=== PATIENT | female | born 1985 | race Caucasian/White ===

== ENCOUNTER 2021-06-07 00:06 | Inpatient (IN) ==
[2021-06-07] MEDS ORDERED: MORPHINE 2 MG/1 ML SYRINGE IV STA (00:38)
[2021-06-07] MEDS ORDERED: SODIUM CHLORIDE 0.9% 1,000 ML IV STA (00:38)
[2021-06-07] MEDS ORDERED: ONDANSETRON 4 MG/2 ML VIAL IV STA (00:38)
[2021-06-07 01:21] LABS: Alanine Aminotransferase 11 U/L (13-56); Albumin 2.7 G/DL (3.4-5.0); Alkaline Phosphatase 109 U/L (45-117); Aspartate Amino Transferase 10 U/L (0-37); Bilirubin,Total < 0.39 MG/DL (0.20-1.00); Blood Urea Nitrogen 12 MG/DL (7-18); Calcium 8.9 MG/DL (8.5-10.1); Carbon Dioxide 27 MMOL/L (21-32); Estimated Glom Filtration Rate 110 ML/MIN; Glucose 103 MG/DL (74-106); Osmolality,Calculated 267.2 MOS/KG (273-304); Potassium 4.1 MMOL/L (3.5-5.1); Sodium 134 MMOL/L (136-145); Total Protein 7.8 G/DL (6.4-8.2)
[2021-06-07 01:26] LABS: Basophils # 0.1 10*3/uL (0.0-0.2); Basophils % 0.4 % (0.0-0.8); Eosinophils # 0.4 10*3/uL (0.0-0.87); Eosinophils % 3.4 % (0.00-10.9); Hematocrit 26.2 VOL% (35.7-47.0); Hemoglobin 7.1 GM/DL (12.0-16.0); Immature Granulocytes % 0.6 %; Immature Granulocytes Absolute 0.08 #; Lymphocytes # 2.8 10*3/uL (1.4-4.0); Lymphocytes % 21.7 % (21.3-54.2); Mean Corpuscular HGB Conc 27.1 GM/DL (32-36); Monocytes % 4.5 % (1.7-12.7); Neutrophils % 69.4 % (38.7-73.9); Platelet Count 506 T/CUMM (130-400); Red Blood Count 4.16 MC/CUMM (3.8-5.5); Red Cell Distribution Width 20.7 % (9.3-17.3); White Blood Count 12.8 T/CUMM (4-12)
[2021-06-07 01:34] LABS: Bacteria,Urine Few /HPF (Few); Bilirubin,Urine Negative (Negative); Blood, Urine Negative (Negative); Glucose,Urine (UA) Negative (Negative); Ketones,Urine Negative (Negative); Mucus,Urine Occasional /LPF (Occasional); Nitrite,Urine Positive (Negative); Protein,Urine Negative; RBC,Urine 1 /HPF (0-4); Urine Appearance CLEAR (Clear); Urine Color Yellow (Yellow); Urine Specific Gravity 1.004 (1.001-1.035); Urine Urobilinogen < 2.0 EU/DL (0.2-1.0)
[2021-06-07] MEDS ORDERED: HYDROmorphone 2 MG/1 ML VIAL IV STA ×2 (02:14→04:58)
[2021-06-07] MEDS ORDERED: HYDROmorphone 2 MG/1 ML VIAL ONE (02:15)
[2021-06-07] MEDS ORDERED: cefTRIAXone 1,000 MG in SODIUM CHLORIDE 0.9% 100 ML IV STA (04:02)
[2021-06-07] MEDS ORDERED: PIPERACILLIN/TAZOBACTAM 3,375 MG in SODIUM CHLORIDE 0.9% 100 ML IV STA (04:38)
[2021-06-07] MEDS ORDERED: SODIUM CHLORIDE 0.9% 1,000 ML IV PRN ×2 (05:56→10:44)
[2021-06-07] MEDS ORDERED: GLUCAGON 1 MG VIAL IM PRN (05:57)
[2021-06-07] MEDS ORDERED: hydrALAZINE 20 MG/1 ML VIAL IV PRN (05:57)
[2021-06-07] MEDS ORDERED: DEXTROSE 50% 25 GM/50 ML VIAL IV PRN (05:57)
[2021-06-07] MEDS ORDERED: guaiFENesin/DM ER 600-30 MG TABLET PO PRN (05:57)
[2021-06-07] MEDS ORDERED: NICOTINE 21 MG/24 HR PATCH TRANSDERM PRN (05:57)
[2021-06-07] MEDS ORDERED: ONDANSETRON 4 MG/2 ML VIAL IV PRN (05:57)
[2021-06-07] MEDS ORDERED: ZALEPLON 5 MG CAPSULE PO PRN (05:57)
[2021-06-07] MEDS ORDERED: diphenhydrAMINE CAP 25 MG CAPSULE PO PRN (05:57)
[2021-06-07] MEDS ORDERED: SODIUM CHLORIDE 0.9% 1,000 ML IV SCH (06:00)
[2021-06-07 07:11] LABS: Folate 5.03 NG/ML (5.38-24.0); Vitamin B12 242 PG/ML (211-911)
[2021-06-07 09:17] LABS: Basophils # 0.1 10*3/uL (0.0-0.2); Basophils % 0.6 % (0.0-0.8); Eosinophils # 0.5 10*3/uL (0.0-0.87); Eosinophils % 5.1 % (0.00-10.9); Hematocrit 24.5 VOL% (35.7-47.0); Immature Granulocytes % 0.7 %; Immature Granulocytes Absolute 0.06 #; Lymphocytes # 3.2 10*3/uL (1.4-4.0); Lymphocytes % 36.7 % (21.3-54.2); Mean Corpuscular HGB Conc 25.7 GM/DL (32-36); Mean Corpuscular Volume 65.7 FL (87-102); Mean Platelet Volume 8.6 FL (9.6-12.0); Monocytes % 7.2 % (1.7-12.7); Neutrophils % 49.7 % (38.7-73.9); Platelet Count 394 T/CUMM (130-400); Red Blood Count 3.73 MC/CUMM (3.8-5.5); Red Cell Distribution Width 21.1 % (9.3-17.3); White Blood Count 8.8 T/CUMM (4-12)
[2021-06-07] MEDS ORDERED: INFLUENZA VIRUS VACCINE 0.5 ML SYRINGE IM ONE (09:31)
[2021-06-07 09:51] LABS: Hemoglobin 6.3 GM/DL (12.0-16.0)
[2021-06-07 09:57] LABS: Eosinophils 6 % (0-10); Hypochromasia 1+; Lymphocytes 36 % (20-55); Microcytosis 1+; Platelet Estimate Adequate; Segmented Neutrophils 51 % (50-85); Total Cells Counted 100
[2021-06-07] MEDS: PANTOPRAZOLE 40 MG TABLET PO SCH (10:26)
[2021-06-07] MEDS: FOLIC ACID 1 MG TABLET PO SCH ×2 (10:27→21:36)
[2021-06-07] MEDS: DOCUSATE SODIUM 100 MG CAPSULE PO SCH ×2 (10:27→21:35)
[2021-06-07] MEDS ORDERED: NON-FORMULARY MEDICATION (Omeprazole 20 mg capsule,delayed release(DR/EC)) PO SCH (10:30)
[2021-06-07 10:31] LABS: Hemoglobin A1 (Alkaline) 97.5 % (96.5-98.5); Hemoglobin A2 (Alkaline) 2.5 % (1.5-3.5)
[2021-06-07 11:36] LABS: Sedimentation Rate-Westergren 79 MM/HR (0-20)
[2021-06-07] MEDS: ACETAMINOPHEN 325 MG TABLET PO PRN ×2 (12:45→23:31)
[2021-06-07] MEDS: VANCOMYCIN INJ 1,000 MG in SODIUM CHLORIDE 0.9% 250 ML IV SCH (16:30)
[2021-06-07] MEDS: CEFEPIME 1,000 MG in SODIUM CHLORIDE 0.9% 100 ML IV SCH ×2 (16:31→17:07)
[2021-06-07] MEDS: OXYBUTYNIN XL 15 MG TABLET PO SCH ×2 (16:33→21:35)
[2021-06-07] MEDS: GABAPENTIN 400 MG CAPSULE PO SCH ×3 (16:34→21:41)
[2021-06-07] MEDS: BACLOFEN 20 MG TABLET PO SCH ×3 (16:52→21:35)
[2021-06-07] MEDS: metroNIDAZOLE INJ 500 MG/100 ML PREMIX IV SCH ×2 (16:53→17:06)
[2021-06-07] MEDS: MORPHINE 2 MG/1 ML SYRINGE IV PRN ×2 (16:53→23:26)
[2021-06-07] MEDS: AMITRIPTYLINE 50 MG TABLET PO SCH (21:36)
[2021-06-08] MEDS: CEFEPIME 1,000 MG in SODIUM CHLORIDE 0.9% 100 ML IV SCH ×4 (01:28→17:36)
[2021-06-08] MEDS: metroNIDAZOLE INJ 500 MG/100 ML PREMIX IV SCH ×3 (03:05→17:37)
[2021-06-08] MEDS: VANCOMYCIN INJ 1,000 MG in SODIUM CHLORIDE 0.9% 250 ML IV SCH ×2 (05:24→18:15)
[2021-06-08] MEDS: LEVOTHYROXINE 50 MCG TABLET PO SCH (06:32)
[2021-06-08 06:53] LABS: Albumin 2.2 G/DL (3.4-5.0); Bilirubin,Total 0.5 MG/DL (0.20-1.00); Calcium 8.2 MG/DL (8.5-10.1); Osmolality,Calculated 275.5 MOS/KG (273-304); Potassium 4.1 MMOL/L (3.5-5.1); Total Protein 6.5 G/DL (6.4-8.2)
[2021-06-08 06:55] LABS: Basophils % 0.4 % (0.0-0.8); Eosinophils # 0.3 10*3/uL (0.0-0.87); Hematocrit 31.3 VOL% (35.7-47.0); Immature Granulocytes % 0.4 %; Immature Granulocytes Absolute 0.03 #; Lymphocytes # 1.6 10*3/uL (1.4-4.0); Lymphocytes % 19.5 % (21.3-54.2); Mean Corpuscular HGB Conc 29.1 GM/DL (32-36); Mean Corpuscular Volume 69.9 FL (87-102); Monocytes % 6.4 % (1.7-12.7); Neutrophils % 69.3 % (38.7-73.9); Platelet Count 373 T/CUMM (130-400); Red Cell Distribution Width 26.5 % (9.3-17.3)
[2021-06-08 07:00] LABS: Hemoglobin 9.1 GM/DL (12.0-16.0); Red Blood Count 4.48 MC/CUMM (3.8-5.5)
[2021-06-08] MEDS: MORPHINE 2 MG/1 ML SYRINGE IV PRN ×3 (07:23→21:16)
[2021-06-08] MEDS: OXYBUTYNIN XL 15 MG TABLET PO SCH ×2 (10:08→21:14)
[2021-06-08] MEDS: BACLOFEN 20 MG TABLET PO SCH ×4 (10:08→21:14)
[2021-06-08] MEDS: GABAPENTIN 400 MG CAPSULE PO SCH ×4 (10:08→21:14)
[2021-06-08] MEDS: DOCUSATE SODIUM 100 MG CAPSULE PO SCH ×2 (10:08→21:14)
[2021-06-08] MEDS: FOLIC ACID 1 MG TABLET PO SCH ×2 (10:08→21:14)
[2021-06-08] MEDS: PANTOPRAZOLE 40 MG TABLET PO SCH (10:08)
[2021-06-08] MEDS: ZALEPLON 5 MG CAPSULE PO SCH (21:15)
[2021-06-09] MEDS: CEFEPIME 1,000 MG in SODIUM CHLORIDE 0.9% 100 ML IV SCH ×4 (00:42→18:42)
[2021-06-09] MEDS: VANCOMYCIN INJ 1,000 MG in SODIUM CHLORIDE 0.9% 250 ML IV SCH ×2 (05:13→17:03)
[2021-06-09] MEDS: LEVOTHYROXINE 50 MCG TABLET PO SCH (06:17)
[2021-06-09] MEDS: PANTOPRAZOLE 40 MG TABLET PO SCH (08:54)
[2021-06-09] MEDS: GABAPENTIN 400 MG CAPSULE PO SCH ×4 (08:54→22:28)
[2021-06-09] MEDS: OXYBUTYNIN XL 15 MG TABLET PO SCH ×2 (08:54→22:28)
[2021-06-09] MEDS: BACLOFEN 20 MG TABLET PO SCH ×4 (08:54→22:28)
[2021-06-09] MEDS: IRON (CARBONYL)/VIT C/B12/FA TABLET PO SCH (08:54)
[2021-06-09] MEDS: FOLIC ACID 1 MG TABLET PO SCH ×2 (08:55→22:27)
[2021-06-09] MEDS: DOCUSATE SODIUM 100 MG CAPSULE PO SCH ×2 (08:55→22:27)
[2021-06-09] MEDS: MORPHINE 2 MG/1 ML SYRINGE IV PRN ×2 (09:00→18:41)
[2021-06-09] MEDS: FUROSEMIDE 40 MG/4 ML VIAL IV SCH (17:02)
[2021-06-09] MEDS: POTASSIUM CHLORIDE 20 MEQ TABLET PO SCH (22:27)
[2021-06-09] MEDS: AMITRIPTYLINE 50 MG TABLET PO SCH (22:28)
[2021-06-10] MEDS: MORPHINE 2 MG/1 ML SYRINGE IV PRN ×4 (00:59→23:59)
[2021-06-10] MEDS: CEFEPIME 1,000 MG in SODIUM CHLORIDE 0.9% 100 ML IV SCH ×5 (01:19→23:58)
[2021-06-10 05:43] LABS: Calcium 8.1 MG/DL (8.5-10.1); Osmolality,Calculated 277.5 MOS/KG (273-304); Potassium 3.6 MMOL/L (3.5-5.1)
[2021-06-10] MEDS: VANCOMYCIN INJ 1,000 MG in SODIUM CHLORIDE 0.9% 250 ML IV SCH ×2 (05:45→17:26)
[2021-06-10 06:23] LABS: Basophils # 0.1 10*3/uL (0.0-0.2); Basophils % 0.6 % (0.0-0.8); Eosinophils # 0.6 10*3/uL (0.0-0.87); Eosinophils % 6.9 % (0.00-10.9); Hematocrit 31.7 VOL% (35.7-47.0); Hemoglobin 9.1 GM/DL (12.0-16.0); Immature Granulocytes % 0.6 %; Immature Granulocytes Absolute 0.05 #; Lymphocytes # 2.6 10*3/uL (1.4-4.0); Lymphocytes % 30.6 % (21.3-54.2); Mean Corpuscular HGB Conc 28.7 GM/DL (32-36); Mean Corpuscular Volume 71.6 FL (87-102); Mean Platelet Volume 8.7 FL (9.6-12.0); Monocytes % 8.1 % (1.7-12.7); Neutrophils % 53.2 % (38.7-73.9); Platelet Count 392 T/CUMM (130-400); Red Blood Count 4.43 MC/CUMM (3.8-5.5); White Blood Count 8.4 T/CUMM (4-12)
[2021-06-10 06:38] LABS: Hypochromasia 2+; Microcytosis 2+; Platelet Estimate Normal; Polychromasia Slight; Target Cells Slight
[2021-06-10] MEDS: FUROSEMIDE 40 MG/4 ML VIAL IV SCH ×2 (08:27→15:21)
[2021-06-10] MEDS: IRON (CARBONYL)/VIT C/B12/FA TABLET PO SCH (08:28)
[2021-06-10] MEDS: POTASSIUM CHLORIDE 20 MEQ TABLET PO SCH ×2 (08:28→23:56)
[2021-06-10] MEDS: OXYBUTYNIN XL 15 MG TABLET PO SCH ×2 (08:28→23:56)
[2021-06-10] MEDS: DOCUSATE SODIUM 100 MG CAPSULE PO SCH ×3 (08:28→23:56)
[2021-06-10] MEDS: PANTOPRAZOLE 40 MG TABLET PO SCH (08:28)
[2021-06-10] MEDS: FOLIC ACID 1 MG TABLET PO SCH ×2 (08:28→23:56)
[2021-06-10] MEDS: GABAPENTIN 400 MG CAPSULE PO SCH ×4 (08:28→23:56)
[2021-06-10] MEDS: LEVOTHYROXINE 50 MCG TABLET PO SCH (08:29)
[2021-06-10] MEDS: BACLOFEN 20 MG TABLET PO SCH ×4 (08:29→23:56)
[2021-06-10] MEDS: ZALEPLON 5 MG CAPSULE PO SCH (23:56)
[2021-06-11] MEDS: VANCOMYCIN INJ 1,000 MG in SODIUM CHLORIDE 0.9% 250 ML IV SCH (05:33)
[2021-06-11] MEDS: LEVOTHYROXINE 50 MCG TABLET PO SCH (06:45)
[2021-06-11] MEDS: CEFEPIME 1,000 MG in SODIUM CHLORIDE 0.9% 100 ML IV SCH ×3 (07:00→21:32)
[2021-06-11 07:07] LABS: Basophils # 0.1 10*3/uL (0.0-0.2); Basophils % 0.6 % (0.0-0.8); Calcium 8.7 MG/DL (8.5-10.1); Eosinophils # 0.6 10*3/uL (0.0-0.87); Eosinophils % 6.2 % (0.00-10.9); Hematocrit 34.2 VOL% (35.7-47.0); Hemoglobin 9.5 GM/DL (12.0-16.0); Immature Granulocytes % 0.6 %; Immature Granulocytes Absolute 0.06 #; Lymphocytes # 2.8 10*3/uL (1.4-4.0); Lymphocytes % 28.5 % (21.3-54.2); Mean Corpuscular HGB Conc 27.8 GM/DL (32-36); Mean Platelet Volume 8.9 FL (9.6-12.0); Monocytes % 9.1 % (1.7-12.7); Osmolality,Calculated 274.7 MOS/KG (273-304); Platelet Count 411 T/CUMM (130-400); Potassium 4.1 MMOL/L (3.5-5.1); Red Blood Count 4.82 MC/CUMM (3.8-5.5); Red Cell Distribution Width 29.1 % (9.3-17.3); White Blood Count 9.7 T/CUMM (4-12)
[2021-06-11 07:18] LABS: Free T4 (Free Thyroxine) 0.82 NG/DL (0.76-1.46); Thyroid Stimulating Hormone 4.68 uIU/ml (0.358-3.74)
[2021-06-11 07:49] LABS: Hypochromasia 1+; Microcytosis 1+; Polychromasia Slight
[2021-06-11] MEDS: DOCUSATE SODIUM 100 MG CAPSULE PO SCH ×2 (08:07→21:31)
[2021-06-11] MEDS: FUROSEMIDE 40 MG/4 ML VIAL IV SCH ×2 (08:49→17:09)
[2021-06-11] MEDS: MORPHINE 2 MG/1 ML SYRINGE IV PRN ×3 (08:58→21:33)
[2021-06-11] MEDS: POTASSIUM CHLORIDE 20 MEQ TABLET PO SCH ×2 (08:59→21:32)
[2021-06-11] MEDS: GABAPENTIN 400 MG CAPSULE PO SCH ×4 (09:00→21:33)
[2021-06-11] MEDS: CHOLECALCIFEROL 1,000 UNIT TABLET PO SCH (09:00)
[2021-06-11] MEDS: OXYBUTYNIN XL 15 MG TABLET PO SCH ×2 (09:01→21:31)
[2021-06-11] MEDS: IRON (CARBONYL)/VIT C/B12/FA TABLET PO SCH (09:01)
[2021-06-11] MEDS: FOLIC ACID 1 MG TABLET PO SCH ×2 (09:01→21:32)
[2021-06-11] MEDS: BACLOFEN 20 MG TABLET PO SCH ×4 (09:01→21:32)
[2021-06-11] MEDS: PANTOPRAZOLE 40 MG TABLET PO SCH (09:01)
[2021-06-11] MEDS ORDERED: RIVAROXABAN 10 MG TABLET PO SCH (21:00)
[2021-06-11] MEDS: AMITRIPTYLINE 50 MG TABLET PO SCH (21:31)
[2021-06-12] MEDS: CEFEPIME 1,000 MG in SODIUM CHLORIDE 0.9% 100 ML IV SCH ×2 (03:14→10:16)
[2021-06-12] MEDS: LEVOTHYROXINE 50 MCG TABLET PO SCH (05:57)
[2021-06-12 07:24] LABS: Calcium 9.4 MG/DL (8.5-10.1); Osmolality,Calculated 270.2 MOS/KG (273-304); Potassium 4.2 MMOL/L (3.5-5.1)
[2021-06-12 07:33] LABS: Basophils # 0.1 10*3/uL (0.0-0.2); Basophils % 0.7 % (0.0-0.8); Eosinophils # 0.6 10*3/uL (0.0-0.87); Eosinophils % 6.1 % (0.00-10.9); Hematocrit 35.4 VOL% (35.7-47.0); Hemoglobin 9.9 GM/DL (12.0-16.0); Immature Granulocytes Absolute 0.09 #; Lymphocytes # 2.6 10*3/uL (1.4-4.0); Lymphocytes % 27.5 % (21.3-54.2); Mean Corpuscular Volume 70.8 FL (87-102); Mean Platelet Volume 8.8 FL (9.6-12.0); Monocytes % 9.6 % (1.7-12.7); Neutrophils % 55.1 % (38.7-73.9); Platelet Count 422 T/CUMM (130-400); Red Cell Distribution Width 29.3 % (9.3-17.3); White Blood Count 9.3 T/CUMM (4-12)
[2021-06-12] MEDS: FUROSEMIDE 40 MG/4 ML VIAL IV SCH (10:13)
[2021-06-12] MEDS: GABAPENTIN 400 MG CAPSULE PO SCH ×2 (10:14→14:43)
[2021-06-12] MEDS: OXYBUTYNIN XL 15 MG TABLET PO SCH (10:15)
[2021-06-12] MEDS: IRON (CARBONYL)/VIT C/B12/FA TABLET PO SCH (10:15)
[2021-06-12] MEDS: POTASSIUM CHLORIDE 20 MEQ TABLET PO SCH (10:15)
[2021-06-12] MEDS: PANTOPRAZOLE 40 MG TABLET PO SCH (10:15)
[2021-06-12] MEDS: BACLOFEN 20 MG TABLET PO SCH ×2 (10:15→14:42)
[2021-06-12] MEDS: FOLIC ACID 1 MG TABLET PO SCH (10:15)
[2021-06-12] MEDS: CHOLECALCIFEROL 1,000 UNIT TABLET PO SCH (10:15)
[2021-06-12] MEDS: DOCUSATE SODIUM 100 MG CAPSULE PO SCH (10:16)
[2021-06-12] MEDS ORDERED: COLCHICINE 0.6 MG CAPSULE PO ONE (14:52)
[2021-06-12 15:47] VITALS: BP 107/64
== END 2021-06-12 16:45 | disposition home or self-care (01) | DRG 463 ==
LOC: EDBD → EDUNIT# → N.ED 00:06 → SUATTDRO 05:57 → N.EDINP 05:57 → N.5E 08:09
PROVIDERS: ADMIT Internal Medicine; ATTEND Internal Medicine